=== PATIENT | male | born 1985 | race American Indian/Alaskan Native ===

== ENCOUNTER 2018-08-08 11:56 | Emergency (ER) | payer OTHER ==
[2018-08-08] MEDS ORDERED: PERCOCET 5/325 PO STA (13:20)
[2018-08-08] MEDS ORDERED: ZOFRAN ODT PO STA (13:20)
[2018-08-08 13:21] VITALS: BP 131/86
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
== END 2018-08-08 15:30 | disposition home or self-care (01) ==
LOC: ED 11:56
DX: S39.012A Strain of muscle, fascia and tendon of lower back, initial encounter (principal); V49.49XA Driver injured in collision with other motor vehicles in traffic accident, initial encounter; Y93.89 Activity, other specified; Y92.89 Other specified places as the place of occurrence of the external cause; Y99.8 Other external cause status
CPT/HCPCS: 72100; Q0162